=== PATIENT | male | born 1945 | race Hispanic/Latino ===

== ENCOUNTER → 2019-03-04 | Outpatient (CLI) | payer MEDICARE, OTHER | END | disposition home or self-care (01) | LOC: RAH 08:13 | PROVIDERS: ATTEND Internal Medicine | DX: M47.816 Spondylosis without myelopathy or radiculopathy, lumbar region (principal); M47.814 Spondylosis without myelopathy or radiculopathy, thoracic region; W19.XXXA Unspecified fall, initial encounter; Y93.89 Activity, other specified; Y92.89 Other specified places as the place of occurrence of the external cause; Y99.8 Other external cause status | CPT/HCPCS: 72072; 72100 ==

== ENCOUNTER → 2019-04-09 | Outpatient (CLI) | payer OTHER | END | disposition home or self-care (01) | LOC: RAH 09:59 | PROVIDERS: ATTEND Internal Medicine | DX: R07.89 Other chest pain (principal); R07.81 Pleurodynia; M25.511 Pain in right shoulder | CPT/HCPCS: 71046; 71100; 73030 ==

== ENCOUNTER → 2020-08-03 | Outpatient (CLI) | payer OTHER | END | disposition home or self-care (01) | LOC: RAH 13:27 | PROVIDERS: ATTEND Internal Medicine | DX: I70.203 Unspecified atherosclerosis of native arteries of extremities, bilateral legs (principal) | CPT/HCPCS: 93925 ==

== ENCOUNTER → 2021-01-05 | Outpatient (CLI) | payer OTHER | END | disposition home or self-care (01) | LOC: RAH 08:49 | PROVIDERS: ATTEND Internal Medicine Cardiovascular Disease | DX: I87.2 Venous insufficiency (chronic) (peripheral) (principal); Q21.1 Atrial septal defect; E78.5 Hyperlipidemia, unspecified; I45.10 Unspecified right bundle-branch block | CPT/HCPCS: 93356; C8929 ==

== ENCOUNTER → 2021-02-16 | Outpatient (CLI) | payer OTHER | END | disposition home or self-care (01) | LOC: SHCH 13:10 | PROVIDERS: ATTEND Internal Medicine Cardiovascular Disease | DX: I87.2 Venous insufficiency (chronic) (peripheral) (principal); I73.9 Peripheral vascular disease, unspecified; K21.9 Gastro-esophageal reflux disease without esophagitis | CPT/HCPCS: 93925; 93970 ==

== ENCOUNTER → 2022-03-15 | Outpatient (CLI) | payer OTHER | END | disposition home or self-care (01) | LOC: RAH 15:34 | PROVIDERS: ATTEND Internal Medicine | DX: S99.921A Unspecified injury of right foot, initial encounter (principal); M79.674 Pain in right toe(s); X58.XXXA Exposure to other specified factors, initial encounter; Y93.89 Activity, other specified; Y92.89 Other specified places as the place of occurrence of the external cause; Y99.8 Other external cause status | CPT/HCPCS: 73630 ==

== ENCOUNTER → 2022-12-29 | Outpatient (CLI) | payer OTHER | END | disposition home or self-care (01) | LOC: RAH 10:37 | PROVIDERS: ATTEND Internal Medicine | DX: K57.90 Diverticulosis of intestine, part unspecified, without perforation or abscess without bleeding (principal) | CPT/HCPCS: 74018 ==

== ENCOUNTER → 2023-04-25 | Outpatient (CLI) | payer OTHER | END | disposition home or self-care (01) | LOC: SHCH 08:03 | PROVIDERS: ATTEND Internal Medicine Cardiovascular Disease | DX: R09.89 Other specified symptoms and signs involving the circulatory and respiratory systems (principal) | CPT/HCPCS: 93880 ==

== ENCOUNTER → 2023-05-14 | Outpatient (CLI) | payer OTHER ==
[~2023-05-14] MED LIST: REGADENOSON 0.4 MG/5 ML PF SYG IVP ONE
== END | disposition home or self-care (01) ==
LOC: SHCH 09:01
PROVIDERS: ATTEND Internal Medicine Cardiovascular Disease
DX: R07.9 Chest pain, unspecified (principal); I45.10 Unspecified right bundle-branch block
CPT/HCPCS: 78452; 93017; J2785; A9500 ×2; 96374

== ENCOUNTER → 2024-09-17 | Outpatient (CLI) | payer OTHER ==
--- NOTE | 2024-09-17 10:28 | HMCIMG ---
ABD COMP DECUB/ERECT VWS HISTORY: Constipation COMPARISON: None FINDINGS: Two views of the abdomen were obtained. Small bowel dilatation is seen. Fecal material is seen in the colon. Fecal material is seen in the colon. There is no evidence of free intraperitoneal air. Degenerative changes of the thoracolumbar spine are present. IMPRESSION: 1. Small bowel dilatation. Fecal material in the colon.
== END | disposition home or self-care (01) ==
LOC: RAH 09:15
PROVIDERS: ATTEND Internal Medicine
DX: K57.30 Diverticulosis of large intestine without perforation or abscess without bleeding (principal); K59.00 Constipation, unspecified; M47.815 Spondylosis without myelopathy or radiculopathy, thoracolumbar region
CPT/HCPCS: 74021

== ENCOUNTER → 2024-10-14 | Outpatient (CLI) | payer OTHER, MEDICARE ==
[~2024-10-14] MED LIST changes: +IOHEXOL 350 MG/ML 100ML INFUS..BTL IV ONE; -REGADENOSON 0.4 MG/5 ML PF SYG IVP ONE
--- NOTE | 2024-10-14 11:49 | HMCIMG ---
CT ABDOMEN/PELVIS W/CONTRAST HISTORY: Abdominal pain COMPARISON: None TECHNIQUE: Multiple sequential axial images of the abdomen and pelvis were obtained from the dome of the diaphragm through symphysis pubis. Patient was given 100 cc of Omnipaque through intravenous route. Oral contrast was not given. FINDINGS: No pleural effusion is seen bilaterally. There is no evidence of parenchymal disease or pulmonary nodule of the visualized lower lungs. Degenerative changes of the thoracolumbar spine are present. The heart is not enlarged. Coronary arterial calcifications are seen. Liver measures 15 cm. Gallbladder is distended. Mild small bowel dilatation is seen. The liver, spleen, adrenal glands and pancreas are unremarkable. There is no evidence of hydronephrosis bilaterally. No evidence of renal stone is seen. Fecal material is seen in the colon. There are normal size retroperitoneal and mesenteric lymph nodes. No ascites is seen. Atherosclerotic changes are present. Appendix is not well seen limiting evaluation. There is diverticulosis. There are findings suggestive of bowel. Pelvic sidewalls are symmetric bilaterally. Bladder is well distended without wall thickening. IMPRESSION: 1. Mild small bowel dilatation. Fecal material in the colon. CT was performed with one or more following dose reduction techniques: automated exposure control, adjustment of the mA and kv according to patient's size, or use of a iterative reconstruction technique.
== END | disposition home or self-care (01) ==
LOC: RAH 07:33
PROVIDERS: ATTEND Internal Medicine Gastroenterology
DX: K57.30 Diverticulosis of large intestine without perforation or abscess without bleeding (principal); K82.8 Other specified diseases of gallbladder; I25.10 Atherosclerotic heart disease of native coronary artery without angina pectoris; M47.815 Spondylosis without myelopathy or radiculopathy, thoracolumbar region; I70.90 Unspecified atherosclerosis; R10.32 Left lower quadrant pain
CPT/HCPCS: 74177; Q9967

== ENCOUNTER → 2024-12-25 | Outpatient (CLI) | payer OTHER, MEDICARE | END | disposition home or self-care (01) | LOC: SHCH 11:19 | PROVIDERS: ATTEND Internal Medicine Cardiovascular Disease | DX: R94.31 Abnormal electrocardiogram [ECG] [EKG] (principal); R00.2 Palpitations | CPT/HCPCS: 93306 ==

== ENCOUNTER → 2025-06-24 | Outpatient (CLI) | payer OTHER, MEDICARE ==
--- NOTE | 2025-06-24 15:15 | HMCIMG ---
EXAM: US Abdominal Wall Nonvascular Soft Tissue Ultrasound CLINICAL HISTORY: Periumbilical pain, left lower quadrant pain ??? 11 months. Prior (08-14-24). TECHNIQUE: Targeted ultrasound of the left groin and periumbilical region performed using grayscale and dynamic maneuvers (Valsalva). COMPARISON: None provided. FINDINGS: SOFT TISSUES: Left groin: No evidence of hernia. No abnormal mass, fluid collection, or vascular abnormality identified. Periumbilical region: No evidence of hernia. No focal defect in the abdominal wall. No abnormal mass or fluid collection detected. IMPRESSION: 1. No evidence of left groin or periumbilical hernia. 2. No abnormal mass or fluid collection identified. /[place]
--- NOTE | 2025-06-24 15:16 | HMCIMG ---
EXAM: US Abdomen complete CLINICAL HISTORY: Periumbilical pain. Prior . TECHNIQUE: Real-time grayscale abdominal ultrasound performed with standard imaging planes. COMPARISON: None provided. FINDINGS: LIVER: Measures 15.1 cm. Normal echogenicity. No focal lesions. No evidence of hepatobiliary abnormality. GALLBLADDER: Normal wall thickness (2 mm). No gallstones. No pericholecystic fluid. COMMON BILE DUCT: 3 mm. Within normal limits. PANCREAS: Visualized, unremarkable. KIDNEYS: Right kidney measures 10.9 x 5.3 x 3.8 cm. Normal cortical echogenicity and contour. No hydronephrosis or mass. Left kidney measures 11.7 x 5.3 x 3.8 cm. Normal cortical echogenicity and contour. No hydronephrosis or mass. No evidence of renal abnormality. SPLEEN: Measures 8 cm. Normal echogenicity. AORTA: Normal caliber. No aneurysm. IVC: Normal caliber and appearance. Inferior vena cava (IVC). Additional findings: Increased bowel gas noted, limiting portions of the exam. Mildly limited by bowel gas IMPRESSION: 1. No acute findings. 2. Mildly limited by bowel gas. /[place]
== END | disposition home or self-care (01) ==
LOC: RAH 08:21
PROVIDERS: ATTEND Internal Medicine
DX: R14.3 Flatulence (principal); R10.33 Periumbilical pain; R10.32 Left lower quadrant pain
CPT/HCPCS: 76700; 76882